=== PATIENT | female | born 1980 | race African-American/Black ===

== ENCOUNTER 2020-04-11 14:22 | Emergency (ER) | payer MEDICARE, OTHER ==
[2020-04-11] MEDS ORDERED: 0.9% SODIUM CHLORIDE 10 ML SYRINGE IVP ONE (14:26)
[2020-04-11] MEDS ORDERED: EPINEPHrine 1:10,000 [1 MG/10 ML] SYRINGE IVP ONE (14:26)
[2020-04-11] MEDS ORDERED: 0.9% SODIUM CHLORIDE 1,000 ML BAG IV ONE (14:26)
[2020-04-11] MEDS ORDERED: ATROPINE SULFATE 0.1 MG/ML 10 ML SYRINGE IVP ONE (14:26)
[2020-04-11] MEDS ORDERED: SODIUM BICARBONATE [ADULT] 8.4% 50 MEQ/50 ML SYRINGE IVP ONE (14:26)
[2020-04-11 14:44] LABS: EOSINOPHILS % (AUTO) 0.6 % (1.0-6.0); HEMATOCRIT 35.1 % (36-46); HEMOGLOBIN 10.7 g/dL (12.0-16.0); LYMPHOCYTES # (AUTO) 4.7 K/uL (1.0-4.8); LYMPHOCYTES % (AUTO) 63.4 % (22.0-44.0); MEAN CORPUSCULAR HEMOGLOBIN 28.9 pg (26.0-34.0); MEAN CORPUSCULAR HGB CONC 30.4 G/dL (31.0-37.0); MEAN CORPUSCULAR VOLUME 95 fL (80-100); MONOCYTES % (AUTO) 13.1 % (2.0-9.0); NEUTROPHILS # (AUTO) 1.6 K/uL (1.8-7.7); NEUTROPHILS % (AUTO) 21.9 % (40.0-70.0); RED CELL DISTRIBUTION WIDTH 13.4 % (11.5-14.5)
[2020-04-11 15:09] LABS: PROTHROMBIN TIME 10.7 SEC (9.4-11.6)
[2020-04-11 15:13] LABS: PLATELET COUNT (AUTO) 123 K/uL (150-450)
[2020-04-11 15:21] LABS: POTASSIUM 4.2 mmol/L (3.5-5.1)
[2020-04-11 15:22] LABS: ALBUMIN 2.8 g/dL (3.4-5.0); BILIRUBIN,TOTAL 0.2 mg/dL (0.1-1.0); CALCIUM, TOTAL 8.5 mg/dL (8.8-10.5); CREATININE 1.37 mg/dL (0.60-1.30); TOTAL PROTEIN, SERUM 7.1 g/dL (6.4-8.2)
[2020-04-11] MEDS ORDERED: LORazepam 2 MG/ML VIAL ONE (15:36)
== END 2020-04-11 15:10 | disposition expired ==
LOC: EDUNIT# 14:22 → EMS 14:25
DX: I46.9 Cardiac arrest, cause unspecified (principal); R06.02 Shortness of breath; M25.512 Pain in left shoulder; F41.9 Anxiety disorder, unspecified; E11.9 Type 2 diabetes mellitus without complications; Z20.828 Contact with and (suspected) exposure to other viral communicable diseases
CPT/HCPCS: 31500; 36415; 80053; 82550; 83880; 84484; 85025; 85610; 85730; 92950; 99291; J0171; J0461; J2060; J3490; J7030; U0003; 36430